=== PATIENT | male | born 1985 | race Two or more races ===

== ENCOUNTER 2024-02-21 15:24 | Emergency (ER) | payer BC ==
[2024-02-22] MEDS ORDERED: CEPH500C PO (12:27)
[2024-02-22] MEDS ORDERED: HYDR-4798 PO (12:27)
== END 2024-02-21 18:01 | disposition left against medical advice (07) ==
LOC: ER 15:24
DX: M79.606 Pain in leg, unspecified (principal); Z53.21 Procedure and treatment not carried out due to patient leaving prior to being seen by health care provider

== ENCOUNTER 2024-02-22 10:05 | Emergency (ER) | payer BC ==
[~2024-02-22] VITALS: Ht 188 cm; Wt 135.0 kg
[2024-02-22 10:21] VITALS: BP 129/82; PULSE 77; RESP 16; TEMP 98.1; O2SAT 99
[2024-02-22] MEDS: cefTRIAXone 1GM/50ML D5W 50 ML IV ONE (11:50)
[2024-02-22] MEDS: KETOROLAC TROMETH 30 MG/ML 1ML VIAL IV ONE (11:51)
[2024-02-22] MEDS ORDERED: HYDR-4798 PO (12:27)
[2024-02-22] MEDS ORDERED: CEPH500C PO (12:27)
== END 2024-02-22 12:42 | disposition home or self-care (01) ==
LOC: EDBD 10:05 → ER 10:05
DX: S96.912A Strain of unspecified muscle and tendon at ankle and foot level, left foot, initial encounter (principal); J45.909 Unspecified asthma, uncomplicated; X50.1XXA Overexertion from prolonged static or awkward postures, initial encounter; Y93.89 Activity, other specified; Y92.89 Other specified places as the place of occurrence of the external cause; Y99.8 Other external cause status
CPT/HCPCS: 29515; 73610; 73630; 93971; 96365; 96375; 99285; J0696; J1885